=== PATIENT | male | born 1935 | race Caucasian/White ===

== ENCOUNTER → 2019-06-01 | Outpatient (CLI) | payer MEDICARE, OTHER ==
[~2019-06-01] MED LIST: ALLEGRA PO; ASPI325 PO; CHOL10002 PO; CYCL10 PO; Cinnamon500 MG PO; DICL25ER PO; EZET10 PO; FLUT.05NI; GLUC500 PO; IBUP800 PO; IRBE150 PO; IRBE75 PO; JALYN 0.5-0.41 EACH PO; MAGOXI400 PO; OMEP20ER PO; PSEU120ER PO; Prilosec Otc20 MG PO; Red Yeast Rice600 MG PO; SELENIUM200 MC1 PO; SENN187 PO; SUDAFED PO; TAMS.4ER PO; TERB24TC TOP; TRAM50 PO
== END | disposition home or self-care (01) ==
LOC: LAB SHORT 11:58 → PLD 11:58
DX: D04.4 Carcinoma in situ of skin of scalp and neck (principal)
CPT/HCPCS: 88305

== ENCOUNTER → 2020-12-18 | Outpatient (CLI) | payer MEDICARE, OTHER | LOC: LAB 10:53 → LAB SHORT 10:53 | DX: D48.5 Neoplasm of uncertain behavior of skin (principal); L91.8 Other hypertrophic disorders of the skin; Z88.5 Allergy status to narcotic agent; Z88.6 Allergy status to analgesic agent; Z88.8 Allergy status to other drugs, medicaments and biological substances | CPT/HCPCS: 88305 ==